=== PATIENT | male | born 1945 | race Caucasian/White ===

== ENCOUNTER 2021-08-26 15:30 | Emergency (ER) | payer OTHER, SELFPAY ==
--- NOTE | 2021-08-26 15:57 | XR_ITS ---
PROCEDURE INFORMATION: Exam: XR Right Hand Exam date and time: 08/26/2021 3:57 PM Age: 76 years old Clinical indication: Injury or trauma; Fall; Dislocation; Right; Little finger; Injury date: 08/26/21; Additional info: Injured pinky finger TECHNIQUE: Imaging protocol: XR Right hand. Views: 3 or more views. COMPARISON: No relevant prior studies available. FINDINGS: Bones/joints: Subtle medial subluxation to the little finger proximal interphalangeal joint. No definitive dislocation. Mild osteoarthritis, as manifested predominantly by decreased joint space and marginal osteophyte formation. This is predominantly affecting the distal interphalangeal joints. There is no evidence of acutely displaced fractures. No aggressive osseous lesions. Soft tissues: There is no significant soft tissue swelling. IMPRESSION: 1. Concern for mild medial subluxation of the little finger proximal interphalangeal joint without definitive dislocation. Ligamentous injury would be of concern. 2. No acutely displaced fractures.
[2021-08-26 16:15] VITALS: BP 156/87; PULSE 66; RESP 18; TEMP 36.7; O2SAT 97; BMI 25.4
--- NOTE | 2021-08-26 16:38 | HMH.EDUTC ---
[facility] [place]: Fall Qualifiers: Encounter type: initial encounter Qualified Code(s): W19.XXXA - Unspecified fall, initial encounter Forehead abrasion Qualifiers: Encounter type: initial encounter Qualified Code(s): S00.81XA - Abrasion of other part of head, initial encounter Complete tear of ligament of finger Qualifiers: Encounter type: initial encounter Qualified Code(s): S63.619A - Unspecified sprain of unspecified finger, initial encounter Disposition: Home, Self-Care Condition on Discharge: Good Instructions: DI for Closed Head Injury, DI for Abrasion Additional Instructions: Keep finger splint on until seen by hand surgeon. Call the [facility] tomorrow to make an appointment in their hand surgery clinic to be seen as soon as possible, preferably within 1 week. Tylenol as needed for pain. Additional instructions for HEAD INJURY: See your physician as soon as possible for further evaluation. Return immediately if severe headache, vomiting, problems with vision or speech, numbness or weakness of the extremities, or severe neck pain. Referrals: Provider,Referral, [Primary Care Provider] - Time of Disposition: 16:53 Medical Decision Making - Damaso Inquiry Pt receiving controlled substance: No Damaso was queried for this patient: No Vital Signs: 08/26/21 16:15 08/26/21 17:00 08/26/21 17:09 Temperature 98.1 F 98.0 F Temperature Source Oral Oral Pulse Rate 60 Pulse Rate [Right Brachial] 66 56 L Respiratory Rate 18 16 18 Blood Pressure 176/95 H Blood Pressure [Right Arm] 156/87 H 192/98 H Blood Pressure Mean 139 Blood Pressure Mean [Right Arm] 110 129 Blood Pressure Source [Right Arm] Automatic Cuff Blood Pressure Position [Right Arm] Sitting 02 Sat by Pulse Oximetry 97 99 98 Oxygen Delivery Method Room Air Room Air 08/26/21 17:30 08/26/21 18:00 08/26/21 18:35 Temperature 98.1 F Temperature Source Pulse Rate 63 58 L 63 Pulse Rate [Right Brachial] Respiratory Rate 15 14 14 Blood Pressure 171/89 H 173/94 H 173/94 H Blood Pressure [Right Arm] Blood Pressure Mean 120 Blood Pressure Mean [Right Arm] Blood Pressure Source [Right Arm] Blood Pressure Position [Right Arm] 02 Sat by Pulse Oximetry 98 97 Oxygen Delivery Method Room Air Orders (Tests/Meds): ED MEDICATIONS Discontinued Medications Generic Name Dose Route Start Last Admin Trade Name Stephenq PRN Reason Stop Dose Admin Neomycin/Polymyxin/Bacitracin 1 each 08/26/21 17:10 08/26/21 17:33 Neosporin Ointment 0.9gm Udp TP 08/26/21 17:11 1 each ONCE ONE Administration Tetanus/Diphtheria Toxoids 0.5 ml 08/26/21 17:12 08/26/21 17:30 Tetanus-Diphth Toxoid, Adult 0.5ml Syr IM 08/26/21 17:13 0.5 ml .ONCE ONE Administration - Radiology Data #1 Image(s): Hand Image Reviewed: Yes I have reviewed radiologist's interpretation IMPRESSION: 1. Concern for mild medial subluxation of the little finger proximal interphalangeal joint without definitive dislocation. Ligamentous injury would be of concern. 2. No acutely displaced fractures. Medical Decision Narrative: Patient states that he fell on ice in his driveway and slide across driveway and hit his head against the side of his house Unwitnessed fall and patient reports that didnt loose consciousness reports he stumbled into the house and yelled help me and went down to the floor due to he felt like he was going to pass out and laid down but did not loose consciousness States that when he tried to get up it made him feel woozy and his finger looked dislocated so she brought him in due to deformity of finger and hitting his head recommended transfer to the ED for further treatment and evaluation and patient agreed concerned where he hit his head Called ED spoke with Fazal and patient was moved to room 5 for further treatment [facility] [facility] [place] - General Stated complaint: AO02/@
--- NOTE | 2021-08-26 16:38 | PC.NURSE ---
PATIENT SENT TO ER PER Amarilis ALEX APRN FOR FURTHER EVALUATION. REPORTS GIVEN TO Dina ARECHIGA RN PER Amarilis ALEX APRN
--- NOTE | 2021-08-26 16:47 | ECG_ITS ---
APPROVED REPORT Exam: Resting ECG HR:53 bpm ECG Measurements Heart Rate 53 AXES MS 200 P 46 QRSd 99 QRS 12 QT 427 T 38 QTc 409 Conclusion SINUS BRADYCARDIA BORDERLINE ECG UNCONFIRMED REPORT Electronically signed by : Bertin Mccormack MD 08/30/2021 19:06:45
--- NOTE | 2021-08-26 16:58 | HMH.EDGENADL ---
ED Disposition Clinical Impression: Fall Qualifiers: Encounter type: initial encounter Qualified Code(s): W19.XXXA - Unspecified fall, initial encounter Forehead abrasion Qualifiers: Encounter type: initial encounter Qualified Code(s): S00.81XA - Abrasion of other part of head, initial encounter Complete tear of ligament of finger Qualifiers: Encounter type: initial encounter Qualified Code(s): S63.619A - Unspecified sprain of unspecified finger, initial encounter Disposition: Home, Self-Care Condition on Discharge: Good Instructions: DI for Closed Head Injury, DI for Abrasion Additional Instructions: Keep finger splint on until seen by hand surgeon. Call the [facility] tomorrow to make an appointment in their hand surgery clinic to be seen as soon as possible, preferably within 1 week. Tylenol as needed for pain. Additional instructions for HEAD INJURY: See your physician as soon as possible for further evaluation. Return immediately if severe headache, vomiting, problems with vision or speech, numbness or weakness of the extremities, or severe neck pain. Referrals: Provider,Referral, MD [Primary Care Provider] - - Critical Care Critical Care Time: No Attestation: On 08/26/21, the high probability of a clinically significant, sudden or life threatening deterioration of the following system(s) required my full and direct attention, intervention and personal management. The time I documented below is in addition to time spent performing reported procedures but includes the following listed in this critical care notation. Medical Decision Making - Damaso Inquiry Pt receiving controlled substance: No Vital Signs: 08/26/21 16:15 08/26/21 17:00 08/26/21 17:09 Temperature 98.1 F 98.0 F Temperature Source Oral Oral Pulse Rate 60 Pulse Rate [Right Brachial] 66 56 L Respiratory Rate 18 16 18 Blood Pressure 176/95 H Blood Pressure [Right Arm] 156/87 H 192/98 H Blood Pressure Mean 139 Blood Pressure Mean [Right Arm] 110 129 Blood Pressure Source [Right Arm] Automatic Cuff Blood Pressure Position [Right Arm] Sitting 02 Sat by Pulse Oximetry 97 99 98 Oxygen Delivery Method Room Air Room Air 08/26/21 17:30 08/26/21 18:00 Temperature Temperature Source Pulse Rate 63 58 L Pulse Rate [Right Brachial] Respiratory Rate 15 14 Blood Pressure 171/89 H 173/94 H Blood Pressure [Right Arm] Blood Pressure Mean 120 Blood Pressure Mean [Right Arm] Blood Pressure Source [Right Arm] Blood Pressure Position [Right Arm] 02 Sat by Pulse Oximetry 98 97 Oxygen Delivery Method Orders (Tests/Meds): ED MEDICATIONS Discontinued Medications Generic Name Dose Route Start Last Admin Trade Name Freq PRN Reason Stop Dose Admin Neomycin/Polymyxin/Bacitracin 1 each 08/26/21 17:10 08/26/21 17:33 Neosporin Ointment 0.9gm Udp TP 08/26/21 17:11 1 each ONCE ONE Administration Tetanus/Diphtheria Toxoids 0.5 ml 08/26/21 17:12 08/26/21 17:30 Tetanus-Diphth Toxoid, Adult 0.5ml Syr IM 08/26/21 17:13 0.5 ml .ONCE ONE Administration - Radiology Data #1 Image(s): Hand Image Reviewed: Yes I reviewed the patient's radiology image, Yes I have reviewed radiologist's interpretation PROCEDURE INFORMATION: Exam: XR Right Hand Exam date and time: 08/26/2021 3:57 PM Age: 76 years old Clinical indication: Injury or trauma; Fall; Dislocation; Right; Little finger; Injury date: 08/26/21; Additional info: Injured pinky finger TECHNIQUE: Imaging protocol: XR Right hand. Views: 3 or more views. COMPARISON: No relevant prior studies available. FINDINGS: Bones/joints: Subtle medial subluxation to the little finger proximal interphalangeal joint. No definitive dislocation. Mild osteoarthritis, as manifested predominantly by decreased joint space and marginal osteophyte formation. This is predominantly affecting the distal interphalangeal joints.
[2021-08-26 17:00] VITALS: BP 176/95; PULSE 60; RESP 16; O2SAT 99
--- NOTE | 2021-08-26 17:01 | PC.NURSE ---
calling [facility] to get med list on pt. it will be faxed.
[2021-08-26 17:09] VITALS: BP 192/98; PULSE 56; RESP 18; TEMP 36.7; O2SAT 98; BMI 25.8
--- NOTE | 2021-08-26 17:09 | CT_ITS ---
PROCEDURE INFORMATION: Exam: CT Head Without Contrast Exam date and time: 08/26/2021 5:09 PM Age: 76 years old Clinical indication: Injury or trauma; Fall; Blunt trauma (contusions or hematomas); Without loss of consciousness; Injury date: 08/26/21; Additional info: Fall, head injury- right sided above his eye-- he fell today// no previous stroke or injury -- no trauma or bruising to back of his head TECHNIQUE: Imaging protocol: Computed tomography of the head without contrast. Radiation optimization: All CT scans at this facility use at least one of these dose optimization techniques: automated exposure control; mA and/or kV adjustment per patient size (includes targeted exams where dose is matched to clinical indication); or iterative reconstruction. COMPARISON: No relevant prior studies available. FINDINGS: Brain: Age related brain involution is present. No acute intracranial hemorrhage, mass effect, midline shift, or brain herniation. Diffuse subcortical and periventricular white matter hypodensities are most in favor with chronic small vessel disease. 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 Cerebral ventricles: There is ex vacuo ventriculomegaly. Paranasal sinuses: 1 cm left maxillary sinus retention cyst. Paranasal sinuses are otherwise clear. Mastoid air cells: Visualized mastoid air cells are well aerated. Orbital cavity: There have been bilateral intraocular lens replacements. Vasculature: Intracranial atherosclerosis is present. Bones/joints: Unremarkable. No acute fracture. Soft tissues: Right frontal scalp swelling. IMPRESSION: 1. Posttraumatic right frontal scalp swelling. 2. No acute intracranial pathology.
--- NOTE | 2021-08-26 17:13 | PC.NURSE ---
pts right pinky finger placed in a splint and wrapped per MD description.
--- NOTE | 2021-08-26 17:14 | PC.NURSE ---
pt to rad.
--- NOTE | 2021-08-26 17:20 | PC.NURSE ---
pt back in room from CT scan; hooked back up to vital signs and cardiac monitoring.
[2021-08-26 17:30] VITALS: BP 171/89; PULSE 63; RESP 15; O2SAT 98
[2021-08-26 18:00] VITALS: BP 173/94; PULSE 58; RESP 14; O2SAT 97
[2021-08-26 18:35] VITALS: BP 173/94; PULSE 63; RESP 14; TEMP 36.7; O2SAT 97
== END 2021-08-26 18:36 | disposition home or self-care (01) ==
LOC: UTC 15:39 → ER 16:45
PROVIDERS: Emergency Provider Emergency Medicine
DX: S63.696A Other sprain of right little finger, initial encounter (principal); S00.83XA Contusion of other part of head, initial encounter; W01.0XXA Fall on same level from slipping, tripping and stumbling without subsequent striking against object, initial encounter; Y92.014 Private driveway to single-family (private) house as the place of occurrence of the external cause; Z23 Encounter for immunization; R42 Dizziness and giddiness
CPT/HCPCS: 70450; 73130; 90471; 90714; 93005; 99282